=== PATIENT | male | born 1985 | race African-American/Black ===

== ENCOUNTER 2019-11-23 15:16 | Emergency (ER) | payer OTHER ==
[~2019-11-23] VITALS: Ht 188 cm; Wt 120.5 kg
[2019-11-23 15:47] VITALS: BP 149/86
[2019-11-23] MEDS ORDERED: HYDR-3164 PO (15:57)
[2019-11-23] MEDS ORDERED: PENI500T PO (15:57)
--- NOTE | 2019-11-23 15:57 | PHYS DOC ---
Past Medical History Past Medical History: No Pertinent History Past Surgical History: No Surgical History Smoking Status: Current Every Day Smoker Alcohol Use: Occasionally General Adult EDM: Chief Complaint: DENTAL PROBLEM HPI: HPI: Patient is a 34 year old male who presents with states yesterday began having left upper back tooth pain and left sided facial swelling. He denies fever, chills, nausea, vomiting, Abdominal pain, neck pain, throat pain. No facial cellulitis is seen. Rates his pain 10 out of 10. He states he does not have a dentist. Review of Systems: Review of Systems: HENT: Denies nasal congestion or sore throat. Dental pain.[] Heart Score: Risk Factors: Risk Factors: DM, Current or recent (<one month) smoker, HTN, HLP, family history of CAD, obesity. Risk Scores: Score 0 - 3: 2.5% MACE over next 6 weeks - Discharge Home Score 4 - 6: 20.3% MACE over next 6 weeks - Admit for Clinical Observation Score 7 - 10: 72.7% MACE over next 6 weeks - Early Invasive Strategies Physical Exam: PE: Constitutional: Well developed, well nourished, no acute distress, non-toxic appearance. [] HENT: Normocephalic, atraumatic, bilateral external ears normal, oropharynx moist, no oral exudates, nose normal. Dental holden with broken left upper molar. [] Eyes: PERRLA, EOMI, conjunctiva normal, no discharge. [] Neck: Normal range of motion, no tenderness, supple, no stridor. [] Cardiovascular:Heart rate regular rhythm, no murmur [] Lungs & Thorax: Bilateral breath sounds clear to auscultation [] Abdomen: Bowel sounds normal, soft, no tenderness, no masses, no pulsatile masses. [] Skin: Warm, dry, no erythema, no rash. [] Back: No tenderness, no CVA tenderness. [] Extremities: No tenderness, no cyanosis, no clubbing, ROM intact, no edema. [] Neurologic: Alert and oriented X 3, normal motor function, normal sensory function, no focal deficits noted. [] Psychologic: Affect normal, judgement normal, mood normal. [] Current Patient Data: Vital Signs: Vital Signs Date Time Temp Pulse Resp B/P (MAP) Pulse Ox O2 Delivery O2 Flow Rate FiO2 11/23/19 15:47 98.6 96 20 149/86 (107) 100 Room Air 98.6 EKG: EKG: [] Radiology/Procedures: Radiology/Procedures: [] Course & Med Decision Making: Course & Med Decision Making Pertinent Labs and Imaging studies reviewed. (See chart for details) Left upper back molar broken tooth with gumline tenderness, redness and swelling. No abscess is seen or felt. Patient does have left upper sided facial swelling. No facial cellulitis or redness. Afebrile. [] Dragon Disclaimer: Dragon Disclaimer: This electronic medical record was generated, in whole or in part, using a voice recognition dictation system. Departure Departure Impression: Primary Impression: Pain, dental Additional Impression: Dental abscess Disposition: HOME, SELF-CARE Condition: STABLE Referrals: NO PCP (PCP) Patient Instructions: Dental Abscess, Dental Pain, [id number] Additional Instructions: Follow-up with a dentist as soon as possible. Take medication as prescribed until it is gone and with food. Take medication as prescribed and do not drink alcohol or drive while on this medication. Scripts Hydrocodone/Apap 5-325 (NORCO 5-325 TABLET) 1 Each Tablet 1 TAB PO PRN Q6HRS PRN for PAIN, #12 TAB 0 Refills Prov: SHERYL LOVE APRN 11/23/19 Penicillin V Potassium (PENICILLIN V POTASSIUM) 500 Mg Tablet 1 TAB PO QID, #40 TAB Prov: SHERYL LOVE APRN 11/23/19 Justicifation of Admission Dx: Justifications for Admission: Justification of Admission Dx: N/A SHERYL LOVE APRN Nov 23, 2019 15:57
== END 2019-11-23 16:09 | disposition home or self-care (01) ==
LOC: ER 15:16
DX: K04.7 Periapical abscess without sinus (principal); F17.200 Nicotine dependence, unspecified, uncomplicated
CPT/HCPCS: 99283